=== PATIENT | male | born 1990 | race Caucasian/White ===

== ENCOUNTER 2021-02-07 15:35 | Emergency (ER) | payer OTHER, SELFPAY ==
--- NOTE | ~2021-02-07 | CT_ITS ---
EXAMINATION: CT abdomen pelvis w con DATE: 02/07/2021 19:52 INDICATION: Mid abdominal pain, fever for 2 days sigmoid colon; no CT evidence of diverticulitis. TECHNIQUE: Computed tomography (CT) of the abdomen and pelvis was performed with 100 cc Omnipaque 350 intravenous contrast. Automated exposure control and iterative reconstruction technique were employe d. Exam dose: 445.73 mGy-cm total exam DLP. COMPARISON: None. FINDINGS: The lung bases are clear. Normal heart size. No pericardial or pleural effusion. There are couple of very small hepatic probable cysts. The liver, spleen, pancreas, adrenal glands an d kidneys are otherwise unremarkable. Normal caliber of the abdominal aorta. No intraperitoneal or retroperitoneal or pelvic mass lesion or adenopathy or ascites. Normal appendix. Diverticulosis of the colon; no CT evidence of diverticulitis. No bowel obstruction, bowel wall thick ening, pneumatosis or intraperitoneal free air. Small fat-containing umbilical hernia. Included skeletal structures are unremarkable. IMPRESSION: Normal appendix Diverticulosis of the colon; no CT evidence of diverticulitis Reviewed, dictated and finalized at [facility]. Reviewed, dictated and finalized at [facility].
[2021-02-07 15:42] VITALS: BP 143/103; PULSE 124; RESP 18; TEMP 38.3; O2SAT 96
[2021-02-07 16:56] LABS: Basophils Percent Auto 0.2 % (0.2-1.2); Eosinophils Percent Auto 0.1 % (0-4.4); Hematocrit 48.8 % (42.0-52.0); Hemoglobin 16.6 g/dL (14.0-18.0); Immature Granulocyte Absolute 0.05 K/mm3 (0.00-0.031); Immature Granulocyte Percent A 0.4 % (0-0.5); Lymphocytes Absolute Auto 0.83 K/mm3 (0.9-3.2); Lymphocytes Percent Auto 6.7 % (18.3-44.2); Mean Corpuscular Hemoglobin 30.9 pg (26-34); Mean Corpuscular Volume 90.9 fl (80-100); Mean Platelet Volume 9.4 fl (7.4-10.4); Monocytes Absolute Auto 0.9 K/mm3 (0.1-0.6); Monocytes Percent Auto 7.5 % (2.6-8.5); Neutrophils Absolute Auto 10.6 K/mm3 (1.3-6.7); Neutrophils Percent Auto 85.1 % (45.5-73.1); Platelet Count Result 264 k/mm3 (150-375); Red Blood Count 5.37 M/mm3 (4.6-6.20); Red Cell Distribution Width 11.9 % (11.5-14.5); White Blood Count 12.5 K/mm3 (4.5-10.0)
[2021-02-07 17:06] LABS: Alanine Aminotransferase 27 U/L (4-50); Albumin Level 4.8 g/dL (3.5-5.1); Alkaline Phosphatase 93 U/L (38-126); Anion Gap 9 mmol/L (8-16); Aspartate Amino Transferase 29 U/L (17-59); Bilirubin,Total 1.2 mg/dL (0.2-1.3); Blood Urea Nitrogen 14 mg/dL (9-20); Calcium 9.4 mg/dL (8.4-10.2); Carbon Dioxide 28 mmol/L (22-30); Chloride 101 mmol/L (98-107); Estimated CRCL calculation 99 ml/min; Estimated Glomerular Filt Rate > 60; Glucose 92 mg/dL (65-110); Lipase 93 U/L (23-300); Potassium 3.6 mmol/L (3.4-5.0); Sodium 138 mmol/L (137-145)
[2021-02-07 17:54] LABS: Add Urine Microscopic? NO; Appearance Urine Clear (Clear); Bilirubin Urine Negative (Negative); Blood Urine Negative (Negative); Color Urine Yellow (Yellow); Glucose Urine UA Negative (Negative); Ketones Urine Negative (Negative); Leukocyte Esterase Ur Negative LEU/UL (Negative); Nitrate Urine Negative (Negative); Protein Urine Negative (Negative); Urobilinogen Urine 0.2 mg/dL (<2.0)
[2021-02-07 19:17] VITALS: BP 140/86; PULSE 96; RESP 16; TEMP 38.2; O2SAT 98
--- NOTE | 2021-02-07 20:29 | ED.GENADULT ---
HPI - General Adult General Chief complaint: Abdominal Pain Stated complaint: Abd Pain Time Seen by Provider: 02/07/21 19:00 Source: patient History of Present Illness HPI narrative: Patient is a 30 y/o male complaining of intermittent generalized abdominal pain starting 2 days ago. He describes his pain as sharp and rates it as 4-8/10. There is no known alleviating or exacerbating factor. The pain waxes and wanes spontaneously. He also has some nausea and diarrhea. Related Data Allergies Allergy/AdvReac Type Severity Reaction Status Date / Time No Known Allergies Allergy Verified 08/21/19 08:15 Review of Systems Constitutional: Constitutional: Denies chills, Denies fever(s), Denies headache(s) and Denies weakness Eyes: Eyes: Denies blurry vision ENT: Denies headache(s) and Denies neck pain Cardiovascular: Cardiovascular: Denies chest pain and Denies dyspnea Respiratory: Respiratory: Denies cough and Denies dyspnea Gastrointestinal: Gastrointestinal: Reports abdominal pain, Reports diarrhea, Reports nausea and Denies vomiting Genitourinary: Genitourinary: Denies hematuria and Denies dysuria Musculoskeletal: Musculoskeletal: Denies back pain and Denies neck pain Neurologic: Denies headache(s) and Denies weakness Exam Const: General: no acute distress and well developed Orientation/consciousness: oriented to person, oriented to place, oriented to time and patient oriented x3 HENMT: Head: normocephalic Ears: external ears normal General nose exam: Normal external nose present Eyes: General: appearance normal, both eyes and all related structures Conjunctivae: conjunctivae normal Neck: Neck: normal visual inspection and full ROM Chest: Chest palpation & inspection: normal inspection of the chest and no tenderness Resp: Effort & Inspection: normal respiratory effort Auscultation: clear to auscultation bilaterally Cardio: Rate: regular rate Rhythm: regular rhythm GI: GI Palp: No abdominal tenderness and Yes Soft to palpation Skin: General skin exam: normal color and turgor normal Neuro: General: oriented to person, oriented to place, oriented to time and patient oriented x3 Cognition (Neuro): normal cognition Extrem: General: normal to inspection, full ROM and no pedal edema Psych: Appearance: grossly normal Mental Status: mental status grossly normal Affect: normal affect Course Reevaluation(s) Reevaluation #1: Rechecked. Patient feels better. Date: 02/07/21 Time: 21:58 Vital Signs Vital signs: Vital Signs Temperature 38.3 C H 02/07/21 15:42 Pulse Rate 124 H 02/07/21 15:42 Respiratory Rate 18 02/07/21 15:42 Blood Pressure 143/103 H 02/07/21 15:42 Pulse Oximetry 96 02/07/21 15:42 Temperature 38.2 C H 02/07/21 19:17 Pulse Rate 81 02/07/21 21:56 Respiratory Rate 16 02/07/21 21:56 Blood Pressure 119/75 02/07/21 21:56 Pulse Oximetry 98 02/07/21 21:56 Medical Decision Making Vital Signs Vital Signs: Vital Signs Temperature 38.3 C H 02/07/21 15:42 Pulse Rate 124 H 02/07/21 15:42 Respiratory Rate 18 02/07/21 15:42 Blood Pressure 143/103 H 02/07/21 15:42 Pulse Oximetry 96 02/07/21 15:42 Temperature 38.2 C H 02/07/21 19:17 Pulse Rate 81 02/07/21 21:56 Respiratory Rate 16 02/07/21 21:56 Blood Pressure 119/75 02/07/21 21:56 Pulse Oximetry 98 02/07/21 21:56 Lab Data Result diagrams: 02/07/21 16:32 02/07/21 16:32 Labs: Lab Results 02/07/21 02/07/21 02/07/21 Range/Units 16:32 16:32 16:32 WBC 12.5 H (4.5-10.0) K/mm3 RBC 5.37 (4.6-6.20) M/mm3 Hgb 16.6 (14.0-18.0) g/dL Hct 48.8 (42.0-52.0) % MCV 90.9 (80-100) fl MCH 30.9 (26-34) pg MCHC 34.0 (32-36) g/dl RDW 11.9 (11.5-14.5) % Plt Count 264 (150-375) k/mm3 MPV 9.4 (7.4-10.4) fl Immature Gran % (Auto) 0.4 (0-0.5) % Neut % (Auto) 85.1 H (45.5-73.1) % Lymph % (Auto) 6.7 L (18.3
[2021-02-07 20:50] VITALS: BP 138/82; PULSE 92; RESP 18; O2SAT 99
[2021-02-07] MEDS: KETOROLAC 30 MG/ML VIAL (*BKC) IV PUSH (20:52)
[2021-02-07] MEDS: SODIUM CHLORIDE 0.9% IV 1,000 ML 999 ML IV CONT (20:52)
[2021-02-07] MEDS: DICYCLOMINE HCL 10 MG CAPSULE 20 MG PO (20:53)
[2021-02-07 21:56] VITALS: BP 119/75; PULSE 81; RESP 16; O2SAT 98
== END 2021-02-07 22:14 | disposition home or self-care (01) ==
PROVIDERS: Emergency Medicine; Emergency Provider Emergency Medicine
DX: K52.9 Noninfective gastroenteritis and colitis, unspecified (principal); K57.90 Diverticulosis of intestine, part unspecified, without perforation or abscess without bleeding
CPT/HCPCS: 36415; 74177; 80053; 81003; 83690; 85025; 96361; 96374; 99284; A9270; J1885; J7030; Q9967

== ENCOUNTER 2023-12-05 14:18 | Outpatient (CLI) | payer OTHER, SELFPAY ==
--- NOTE | ~2023-12-05 | XR_ITS ---
EXAMINATION: XR lumbar spine min 4V DATE: 12/05/2023 14:58 INDICATION: Low back pain. TECHNIQUE: 5 views of lumbar spine were obtained. COMPARISON: None. FINDINGS: Bone alignment is normal. Vertebral body heights are normal. There are endplate osteophytes at multiple levels. Intervertebral disc heights are normal. There is multilevel facet joint osteoart hritis, moderate on the right at L5-S1. IMPRESSION: 1. Mild lumbar spondylosis. Reviewed, dictated and finalized at location [facility]. IMPRESSION: 1. Mild lumbar spondylosis.
--- NOTE | ~2023-12-05 | XR_ITS ---
XR knee LT min 4V 12/05/2023 14:58 Indication: Left knee pain. Myalgias. Procedure: 4 views left foot Comparison: No prior studies for comparison. Findings: There is mild osteoarthritis of the left knee. No fracture, subluxation or dislocation. No joint effusion. No foreign bodies. Impression: 1: Mild osteoarthritis of the left knee. Reviewed, dictated and finalized at location [facility]. Impression: 1: Mild osteoarthritis of the left knee.
--- NOTE | ~2023-12-05 | XR_ITS ---
XR hip RT 2V w AP pelvis 12/05/2023 14:58 INDICATION: Right hip pain PROCEDURE: 3 views right hip including AP pelvis COMPARISON: No prior studies for comparison. FINDINGS: Fracture, dislocation or subluxation is not identified. The soft tissues appear within norm al limits. No foreign bodies are identified. IMPRESSION: 1: NO ACUTE BONE OR JOINT ABNORMALITY IDENTIFIED. Reviewed, dictated and finalized at location [facility].
== END 2023-12-05 14:19 | disposition home or self-care (01) ==
LOC: ANHIMG 14:21
PROVIDERS: PCP Family Medicine; Visit Provider Family Medicine
DX: M79.10 Myalgia, unspecified site (principal); M47.896 Other spondylosis, lumbar region; M17.12 Unilateral primary osteoarthritis, left knee
CPT/HCPCS: 72110; 73502; 73564

== ENCOUNTER 2023-12-25 07:39 | Outpatient (CLI) | payer OTHER, SELFPAY ==
--- NOTE | ~2023-12-25 | MR_ITS ---
MRI of the lumbar spine Clinical History: Myalgia Technique: Axial T2-weighted images, and sagittal T1-weighted, T2-weighted, and and T2 fat-sat images were acquired. Findings: There is no fracture or subluxation of the lumbar spine. Vertebral bodies maintain normal h eight and alignment. No bone marrow signal abnormality seen. At L1-L2, L2-L3, L3-L4, L4-L5, intervertebral discs maintain normal signal and position. Minimal face t joint hypertrophy present as well as. No spinal canal stenosis or neural foraminal narrowing at the se levels. At L5-S1, there is right paracentral to central disc protrusion. There is mild facet joint arthropath y. No central canal stenosis. Probable focal impingement of the descending right-sided S1-S2 level ne rve root by the disc protrusion. Neural foramina are preserved. Paravertebral soft tissues are unremarkable. Impression: Right paracentral disc protrusion at L5-S1, likely impinging the descending right-sided S1-S2 level n erve root. Reviewed, dictated and finalized at location . Impression: Right paracentral disc protrusion at L5-S1, likely impinging the descending rig ht-sided S1-S2 level nerve root.
--- NOTE | ~2023-12-25 | MR_ITS ---
MRI of the right femur Clinical history: Myalgia TECHNIQUE: Axial T1-weighted and STIR images, sagittal T1-weighted and STIR images, and coronal T1-we ighted and STIR images were acquired. FINDINGS: Bone marrow signals are unremarkable. No bone marrow edema, fracture, or evidence for osteo myelitis. No periosteal reaction. No joint effusion seen. Bilateral hip joint spaces appear intact. P ubic symphysis intact. Probable minimal amorphous edema in the peripheral aspect of the right gluteus divya muscle. Remain ing musculature demonstrates normal signal intensity. Visualized tendons appear intact. Subcutaneous soft tissues are unremarkable. No mass lesion or fluid collection evident. IMPRESSION: Probable mild amorphous edematous change in the peripheral right gluteus divya muscle, compatible w ith low-grade muscle strain or contusion, versus possibly other myositis. Reviewed, dictated and finalized at [facility]. IMPRESSION: Probable mild amorphous edematous change in the peripheral right gluteus maximu s muscle, compatible with low-grade muscle strain or contusion, versus possibly other myositis.
== END 2023-12-25 07:40 | disposition home or self-care (01) ==
PROVIDERS: PCP Family Medicine; Visit Provider Family Medicine
DX: M79.18 Myalgia, other site (principal); M54.50 Low back pain, unspecified
CPT/HCPCS: 72148; 73718

== ENCOUNTER 2023-12-27 15:04 | Outpatient (CLI) | payer OTHER, SELFPAY ==
[2023-12-27 18:26] LABS: Hematocrit 47.8 % (42.0-52.0); Mean Corpuscular HGB Conc 33.5 g/dl (32-36); Mean Corpuscular Hemoglobin 31.1 pg (26-34); Mean Platelet Volume 9.6 fl (7.4-10.4); Platelet Count Result 288 k/mm3 (150-375); Red Blood Count 5.14 M/mm3 (4.6-6.20); Red Cell Distribution Width 12.1 % (11.5-14.5); White Blood Count 15.3 K/mm3 (4.5-10.0)
[2023-12-27 18:34] LABS: Alanine Aminotransferase 32 U/L (6-50); Albumin Level 5.1 g/dL (3.5-5.1); Alkaline Phosphatase 95 U/L (38-126); Anion Gap 12 mmol/L (4-12); Aspartate Amino Transferase 55 U/L (17-59); Bilirubin,Total 1.4 mg/dL (0.2-1.3); Blood Urea Nitrogen 29 mg/dL (9-20); CRP < 0.5 mg/dL (<1.0); Calcium 9.6 mg/dL (8.4-10.2); Carbon Dioxide 27 mmol/L (22-30); Chloride 97 mmol/L (98-107); Cholesterol 212 mg/dL (0-200); Estimated Glomerular Filt Rate > 60; Glucose 90 mg/dL (65-110); HDL Direct 82 mg/dL; Potassium 4.8 mmol/L (3.4-5.0); Sodium 136 mmol/L (137-145); Triglycerides 72 mg/dL (<150)
[2023-12-27 18:43] LABS: LDL Cholesterol Direct 113 mg/dL
[2023-12-27 19:02] LABS: Thyroid Stimulating Hormone 0.473 uIU/mL (0.465-4.680)
[2023-12-27 19:18] LABS: Erythrocyte Sedimentation Rate 4 mm/hr (0-20)
[2023-12-30 12:24] LABS: ANA Cascade Screen NEGATIVE (NEGATIVE)
== END 2023-12-27 15:05 | disposition home or self-care (01) ==
LOC: ANHGOSHLAB 15:05
PROVIDERS: PCP Family Medicine; Visit Provider Family Medicine
DX: E66.3 Overweight (principal); F41.9 Anxiety disorder, unspecified; M60.9 Myositis, unspecified; M77.9 Enthesopathy, unspecified; Z79.899 Other long term (current) drug therapy
CPT/HCPCS: 36415; 80053; 80061; 84443; 85027; 85652; 86038; 86140; 86225; 86235; 86364

== ENCOUNTER 2024-07-24 11:00 | Outpatient (CLI) | payer BC, SELFPAY ==
--- OUTSIDE RECORDS SUMMARY | 2024-07-24 11:44 | XMS_ITS | Referral Summary ---
Author Organization [facility] Address [address] [place] [address] Care Team Providers Care Client Account Specialist Name Role Phone Reina Saravia Primary Care Provider [phone] Encounters Date Type Department Care Team Description 07/07/2024 Telephone [facility] Scheduling [address] [place] [address] Sveta Boudreaux 04/29/2024 Orders Only [facility] Neurosurgery [address] [place] [address] [phone] Andre Freeman MD 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); Lumbar herniated disc 04/29/2024 12:15 PM CLINICAL NURSING PROFESSOR Office Visit [facility] Neurosurgery [address] [place] [phone] Andre Freeman MD 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) from Last 3 Months Allergies Active Allergy Reactions Criticality Noted Date Comments Penicillin Hives High 1990 Cefazolin was administered in 03/2024 Ketorolac Swelling Medium 03/12/2024 Per patient: IV Toradol caused facial swelling Medications No known medications Active Problems Problem Noted Date Diagnosed Date Disorder of lumbosacral intervertebral disc 08/2023 Intervertebral lumbar disc disorder 03/04/2024 Immunizations Name Administration Dates Next Due DTP 12/26/1995, 2,1990,09/02,1990 Hep B, Adolescent or Pediatric 08/22/2000,1999,02/29/2000 HiB 09/16/1991, 1,1990,07/05 Influenza, Quadrivalent, Spl it, Preservative Free, Intramuscular 02/22/2022,03/31/2021,03/30/2019,03/17 MMR 12/26/1995,09/16/1991 OPV 12/26/1995, 2,1990,07/05 PPD TEST 12/08/2021 Td, adsorbed 10/04/2004 Tdap 04/27/2021 Social History Tobacco Use Types Packs/Day Years Used Date Smoking Tobacco: Never Smokeless Tobacco: Never Tobacco Cessation:Counseling Given: No AUDIT-C Answer Date Recorded Q1: How often do you have a drink containing alc ohol? 2-4 times a month 03/19/2024 Q2: How many drinks containi ng alcohol do you have on a typical day when you are drinking? 1 or 2 03/19/2024 Q3: How often do you have si x or more drinks on one occasion? Never 03/19/2024 Personal Safety Answer Date Recorded Have you ever been in or are you currently in a harmful physical or emotional relationship or is someone making you feel afraid or unsafe? Denies 03/19/2024 Sex and Gender Information Value Date Recorded Sex Assigned at Not on file Legal Sex Male 12:58 PM CLINICAL NURSING PROFESSOR Gender Identity Male 03/17/2024 9:32 PM CDT Sexual Orientation Hawley 03/17/2024 9: 32 PM CDT Last Filed Vital Signs Vital Sign Reading Time Taken Comments Blood Pressure 103/66 03/19/2024 1:00 PM CDT Pulse 55 03/19/2024 1:00 PM CDT Temperature 36.1 C (97 F) 03/19/2024 11:18 AM CDT Respiratory Rate 11 03/19/2024 1:00 PM CDT Oxygen Saturation 94% 03/19/2024 1:00 PM CDT Inhaled Oxygen Concentration - - Weight 70.8 kg (156 lb) 04/29/2024 12:34 PM CLINICAL NURSING PROFESSOR Height 177.8 cm (5' 10 ) 04/29/2024 12:34 PM CLINICAL NURSING PROFESSOR Body Mass Index 22.38 04/29/2024 12:34 PM CLINICAL NURSING PROFESSOR Plan of Treatment Not on file Insurance [facility] Care Teams Client Account Specialist Relationship Specialty Start Date End Date Reina Saravia DO [facility] [facility] [address] [place] [id number] PCP - General Family Medicine 01/07/24
--- OUTSIDE RECORDS SUMMARY | 2024-07-24 11:44 | XMS_ITS | Patient Health Summary ---
Author Organization [facility] Address [address] [place] [address] Care Team Providers Care Cargo Trimmer Name Role Phone Darell Lowery MD Primary Care Provider [phone] Note from [facility],non-owned Affiliates and Associated Physician Practices is amultiple site organization consisting of ambulatory clinics and hospital sitesin [place], [place], [place] and [place]. This disclosure is being madepursuant to the Care Everywhere program and may not contain all information available regarding this patient. Last updated 18.[facility] Allergies No known active allergies Social History Tobacco Use Types Packs/Day Years Used Date Smoking Tobacco: Never Assessed Sex and Gender Information Value Date Recorded Sex Assigned at Not on file Gender Identity Not on file Sexual Orientation Not on file Procedures * SKIN TEST PPD - POINT OF CARE(Performed 08/24/2017) Performed for Screening examination for pulmonary tuberculosis Results * SKIN TEST PPD - POINT OF CARE (08/24/2017) PPD 0 mm induration Other MISCELLANEOUS SAMPLE S / Unknown 08/24/2017 Aura Johnson DINING ROOM CAPTAIN-HEAD KILN OPERATOR LAB - POINT OF CARE ORDERABLES Care Teams Cargo Trimmer Relationship Specialty [place] [address] [place], [place] [address] [id number] PCP - General Family Medicine 08/22/17
--- OUTSIDE RECORDS SUMMARY | 2024-07-24 11:44 | XMS_ITS | Referral Summary ---
Author Organization [facility] Address [address] [facility] [address] Care Team Providers Care Jewelry Sales Associate Name Role Phone Darell Lowery MD Primary Care Provider [phone] Source Comments [facility],non-owned Affiliates and Associated Physician Practices is amultiple site organization consisting of ambulatory clinics and hospital sitesin [place], [place], [place] and [place]. This disclosure is being madepursuant to the Care Everywhere program and may not contain all information available regarding this patient. Last updated 18.[facility] Allergies No known active allergies Social History Tobacco Use Types Packs/Day Years Used Date Smoking Tobacco: Never Assessed Sex and Gender Information Value Date Recorded Sex Assigned at Not on file Gender Identity Not on file Sexual Orientation Not on file Plan of Treatment Not on file Administered Medications Care Teams Jewelry Sales Associate Relationship Specialty Start Date End Date Darell Lowery MD [address] [facility] [place] [phone] PCP - General Family Medicine 08/22/17
--- OUTSIDE RECORDS SUMMARY | 2024-07-24 11:44 | XMS_ITS | Clinical Summary ---
Author Organization [facility] Address [address] [facility] [place] [address] Care Team Providers Care Dental Assistant Instructor Name Role Phone Darell Lowery MD Primary Care Provider [phone] [facility],non-owned Affiliates and Associated Physician Practices is amultiple site organization consisting of ambulatory clinics and hospital sitesin [place], [place], [place] and [place]. This disclosure is being madepursuant to the Care Everywhere program and may not contain all information available regarding this patient. Last updated 18.[facility] Allergies No known active allergies Social History Tobacco Use Types Packs/Day Years Used Date Smoking Tobacco: Never Assessed Sex and Gender Information Value Date Recorded Sex Assigned at Not on file Gender Identity Not on file Sexual Orientation Not on file Plan of Treatment Health Maintenance Due Date Last Done Comments HIV SCREENING 2005 HEPATITIS C SCREENING 04/17/2008 DTAP/TDAP/TD VACCINES (1 - Tdap) 2009 HEPATITIS B VACCINE (1 of 3 - 19+ 3-dose series) 2009 COVID-19 VACCINE ( - 2023-2 5 season) 2024 INFLUENZA VACCINE (#1) 2024 DEPRESSION SCREENING 06/17/2024 ZOSTER VACCINE (1 of 2) 2040 HIB VACCINE Aged Out No longer eligi ble based on patient's age to complete this topic HPV VACCINE Aged Out No longer eligi ble based on patient's age to complete this topic MENINGOCOCCAL (Group B) VACCINE Aged Out No longer eligible based on patient's age to complete this topic MENINGOCOCCAL VACCINE Aged Out No rhonda nicki eligible based on patient's age to complete this topic PNEUMOCOCCAL VACCINE Aged Out No long er eligible based on patient's age to complete this topic Care Teams Dental Assistant Instructor Relationship Specialty Start Date End Date Darell Lowery MD [address] [facility] [place] [phone] PCP - General Family Medicine 08/22/17
--- OUTSIDE RECORDS SUMMARY | 2024-07-24 11:44 | XMS_ITS | Clinical Summary ---
Author Organization [facility] Address [address] [place] [address] Care Team Providers Care Continuous Improvement Engineer Name Role Phone Reina Saravia Primary Care Provider [phone] Allergies Active Allergy Reactions Criticality Noted Date Comments Penicillin Hives High 1990 Cefazolin was administered in 03/2024 Ketorolac Swelling Medium 03/12/2024 Per patient: IV Toradol caused facial swelling Medications No known medications Active Problems Problem Noted Date Diagnosed Date Disorder of lumbosacral intervertebral disc 08/2023 Intervertebral lumbar disc disorder 03/04/2024 Encounters Date Type Department Care Team Description 07/07/2024 Telephone [facility] Scheduling [address] [place] [address] Sveta Boudreaux 04/29/2024 12:15 PM GOVERNMENT AFFAIRS DIRECTOR Office Visit [facility] Neurosurgery [address] [place] [address] Office [facility] [address] [place] [phone] Andre Freeman MD 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) 04/29/2024 Orders Only [facility] Neurosurgery [address] [place] [address] Office [facility] [address] [place] [address] Andre Freeman MD 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); Lumbar herniated disc from Last 3 Months Immunizations Name Administration Dates Next Due DTP 12/26/1995, 2,1990,09/02,1990 Hep B, Adolescent or Pediatric 08/22/2000,1999,02/29/2000 HiB 09/16/1991, 1,1990,07/05 Influenza, Quadrivalent, Spl it, Preservative Free, Intramuscular 02/22/2022,03/31/2021,03/30/2019,03/17 MMR 12/26/1995,09/16/1991 OPV 12/26/1995, 2,1990,07/05 PPD TEST 12/08/2021 Td, adsorbed 10/04/2004 Tdap 04/27/2021 Surgical History Surgery Date Site/Laterality Comments LASIK 06/17/2014 - 06/16/2015 Medical History Medical History Date Comments Anxiety Diverticulitis of colon Disc disorder of lumbar region Family History Medical History Relation Name Comments Diabetes Maternal Grandfather Relation Name Status Comments Maternal Grandfather Social History Tobacco Use Types Packs/Day Years [...] on file Legal Sex Male 12:58 PM GOVERNMENT AFFAIRS DIRECTOR Gender Identity Male 03/17/2024 9:32 PM CDT Sexual Orientation Hawley 03/17/2024 9: 32 PM CDT Obstetrics History Last Filed Vital Signs Vital Sign Reading Time Taken Comments Blood Pressure 103/66 03/19/2024 1:00 PM CDT Pulse 55 03/19/2024 1:00 PM CDT Temperature 36.1 C (97 F) 03/19/2024 11:18 AM CDT Respiratory Rate 11 03/19/2024 1:00 PM CDT Oxygen Saturation 94% 03/19/2024 1:00 PM CDT Inhaled Oxygen Concentration - - Weight 70.8 kg (156 lb) 04/29/2024 12:34 PM GOVERNMENT AFFAIRS DIRECTOR Height 177.8 cm (5' 10 ) 04/29/2024 12:34 PM GOVERNMENT AFFAIRS DIRECTOR Body Mass Index 22.38 04/29/2024 12:34 PM GOVERNMENT AFFAIRS DIRECTOR Plan of Treatment Health Maintenance Due Date Last Done Comments Depression Screening 1990 Hepatitis C Screening 1990 Varicella Vaccines (1 of 2 - 13+ 2-dose series) 2003 Regular Well Visit/Exam 18-64 2008 Covid-19 Vaccine ( season) 2024 04/11/2023, 06/25/2022, 06/24/2021, Additional history exists DTaP/Tdap/Td Vaccine (7 - Td or Tdap) 04/27/2031 04/27/2021, 10/04/2004, 12/26/1995, Additional history exists Hepatitis B Screening Completed 08/22/2000 , 04/25/2000, 02/29/2000 Influenza Vaccine Completed 03/04/2024, , 03/31/2021, Additional history exists HPV Vaccines Aged Out No longer eligi ble based on patient's age to complete this topic Pneumococcal vaccine <65 Aged Out No longer eligible based on patient's age to complete this topic Insurance [employer] (?) [facility] H[facility]/PPO Address: [place] [address] Care Teams Continuous Improvement Engineer Relationship Specialty Start Date End Date Reina Saravia DO [address] [facility] [place] [address] PCP - General Family Medicine 01/07/24
[2024-07-24 13:55] LABS: Hematocrit 48.9 % (42.0-52.0); Hemoglobin 16.5 g/dL (14.0-18.0); Mean Corpuscular HGB Conc 33.7 g/dl (32-36); Mean Corpuscular Hemoglobin 31.2 pg (26-34); Mean Corpuscular Volume 92.4 fl (80-100); Mean Platelet Volume 9.7 fl (7.4-10.4); Platelet Count Result 258 k/mm3 (150-375); Red Blood Count 5.29 M/mm3 (4.6-6.20); Red Cell Distribution Width 12.1 % (11.5-14.5)
[2024-07-24 14:20] LABS: Alanine Aminotransferase 22 U/L (6-50); Albumin Level 4.6 g/dL (3.5-5.1); Alkaline Phosphatase 80 U/L (38-126); Anion Gap 11 mmol/L (4-12); Aspartate Amino Transferase 49 U/L (17-59); Blood Urea Nitrogen 20 mg/dL (9-20); Calcium 9.7 mg/dL (8.4-10.2); Carbon Dioxide 31 mmol/L (22-30); Chloride 100 mmol/L (98-107); Cholesterol 189 mg/dL (0-200); Estimated Glomerular Filt Rate > 60; Glucose 91 mg/dL (65-110); HDL Direct 88 mg/dL; Potassium 4.4 mmol/L (3.4-5.0); Sodium 142 mmol/L (137-145); Triglycerides 72 mg/dL (<150)
[2024-07-24 14:31] LABS: LDL Cholesterol Direct 79 mg/dL
[2024-07-24 14:48] LABS: Thyroid Stimulating Hormone 0.735 uIU/mL (0.465-4.680)
== END 2024-07-24 11:01 | disposition home or self-care (01) ==
LOC: ANHGOSHLAB 11:01
PROVIDERS: PCP Family Medicine; Visit Provider Family Medicine
DX: F41.9 Anxiety disorder, unspecified (principal); E66.3 Overweight; Z79.899 Other long term (current) drug therapy
CPT/HCPCS: 36415; 80053; 80061; 84443; 85027